=== PATIENT | female | born 1980 | race African-American/Black ===

== ENCOUNTER 2018-01-20 16:58 | Emergency (ER) | payer OTHER ==
[~2018-01-20] VITALS: Ht 165.1 cm; Wt 154.2 kg
[~2018-01-20 16:58] MED LIST: AUGMENTIN 875875 MG PO; AUGMENTIN XR 11 EACH PO; CLARITIN10 MG PO; FERRO-TIME325 MG; FLONASE 0.05%50 MCG NASAL; HYDROCODONE-AC120 ML PO; IBUPROFEN 800800 MG PO; KEFLEX500 MG PO; LISINOPRIL-HCT1 EAC2 PO; NAPROSYN500 MG PO; NORCO 5-325 TA1 EACH PO; PHENERGAN 25 MG25 M1 PO; PHENERGAN 25 MG25 MG PO; PREDNISONE 20 M20 M1 PO; PREDNISONE 20 M20 MG PO; PRINZIDE 20-251 EACH PO; PROAIR HFA8.5 GM; VENTOLIN HFA 1818 GM INH
[2018-01-20 17:37] LABS: HEMATOCRIT 28.9 % (37.0-47.0); MCH 19.2 pg (26.0-34.0); PLATELET COUNT 251 thou/uL (150-400); RBC 4.67 mil/uL (4.20-5.00); RDW 20.4 % (10.5-14.5); WBC 4.3 thou/uL (4.0-11.0)
[2018-01-20 17:44] LABS: CALCIUM 8.6 mg/dL (8.5-10.1); CREATININE 1.1 mg/dL (0.6-1.0); POTASSIUM 3.5 mmol/L (3.5-5.1)
[2018-01-20 18:05] LABS: ABSOLUTE NEUTROPHILS 3.6 thou/uL (1.4-8.2)
[2018-01-20 18:06] LABS: ANISOCYTOSIS 1+; MICROCYTES 3+; POLYCHROMASIA OCCASIONAL
[2018-01-20 18:07] LABS: HYPOCHROMASIA 1+; TARGET CELLS OCCASIONAL
[2018-01-20] MEDS ORDERED: NAPROSYN500 MG PO (19:45)
[2018-01-20] MEDS ORDERED: NORFLEX100 MG PO (19:45)
[2018-01-20 19:56] LABS: URINE BLOOD 2+ (Negative); URINE CLARITY CLEAR; URINE COLOR YELLOW; URINE GLUCOSE-RANDOM* NEGATIVE (Negative); URINE KETONES NEGATIVE (Negative); URINE NITRITE-REFLEX NEGATIVE (Negative); URINE PROTEIN (DIPSTICK) 1+ (Negative); URINE SPECIFIC GRAVITY >= 1.030 (1.005-1.035)
[2018-01-20 19:57] LABS: URINE LEUKOCYTES-REFLEX TRACE (Negative)
[2018-01-20 19:58] LABS: ICTOTEST (BILI CONFIRMATORY) Negative (Negative); URINE BILIRUBIN NEGATIVE (Negative)
[2018-01-20 20:07] LABS: BACTERIA-REFLEX 1-9 Few /HPF (None Seen); CRYSTALS None Seen /LPF (None Seen); FINE GRANULAR CASTS 0-3 Few /LPF (None Seen); HYALINE CASTS 0-3 Few /LPF (None Seen); MUCUS >6 Heavy strn/LPF (None Seen); SQUAMOUS >10 Many /LPF (0-3); URINE WBC-REFLEX 6-15 Few /HPF (0-5)
== END 2018-01-20 20:00 | disposition home or self-care (01) ==
LOC: ER 16:58
PROVIDERS: Physician Assistant
DX: G44.209 Tension-type headache, unspecified, not intractable (principal); D64.9 Anemia, unspecified; J45.909 Unspecified asthma, uncomplicated; I10 Essential (primary) hypertension; F17.210 Nicotine dependence, cigarettes, uncomplicated; Z90.89 Acquired absence of other organs

== ENCOUNTER 2018-05-29 15:47 | Emergency (ER) | payer OTHER ==
[~2018-05-29] VITALS: Ht 165.1 cm; Wt 158.8 kg
[~2018-05-29 15:47] MED LIST changes: +IRON325 PO; +LISINOPRIL-HCT1 EACH PO; +NORFLEX100 MG PO
[2018-05-29] MEDS ORDERED: PROAIR HFA8.5 GM (15:57)
[2018-05-29] MEDS ORDERED: ALBUTEROL2.5 MG/31 INH (15:57)
[2018-05-29] MEDS ORDERED: PREDNISONE 20 M20 MG PO (18:11)
== END 2018-05-29 18:56 | disposition home or self-care (01) ==
LOC: ER 15:47
DX: J45.909 Unspecified asthma, uncomplicated (principal); I10 Essential (primary) hypertension; F17.210 Nicotine dependence, cigarettes, uncomplicated